=== PATIENT | female | born 1990 | race American Indian/Alaskan Native ===

== ENCOUNTER 2016-03-29 16:56 | Outpatient (CLI) | payer MEDICAID ==
[2016-03-29] MEDS ORDERED: LACTATED RINGERS 500 ML IV ONE (17:47)
[2016-03-29 18:27] LABS: Alanine Aminotransferase 23 units/L (7-56); Albumin 3.6 g/dL (3.9-5); Albumin/Globulin Ratio 0.9 %; Alkaline Phosphatase 183 units/L (35-129); Anion Gap 18 mmol/L; Bilirubin,Total 0.2 mg/dL (0.1-1.2); Blood Urea Nitrogen 8 mg/dL (7-17); Calcium 8.5 mg/dL (8.4-10.2); Carbon Dioxide 22 mmol/L (22-30); Glucose 75 mg/dL (65-100); Potassium 3.7 mmol/L (3.6-5.0); Sodium 135 mmol/L (137-145); Total Protein 7.5 g/dL (6.3-8.2)
[2016-03-29 18:28] LABS: Basophils % (Auto) 0.3 % (0.0-1.8); Eosinophils % (Auto) 0.7 % (0.0-4.3); Hematocrit 27.6 % (30.3-42.9); Hemoglobin 8.8 gm/dl (10.1-14.3); Mean Corpuscular HGB Conc 32 % (30-34); Mean Corpuscular Volume 72 fl (79-97); Platelet Count 201 K/mm3 (140-440); Red Blood Count 3.83 M/mm3 (3.65-5.03); Red Cell Distribution Width 16.9 % (13.2-15.2)
[2016-03-29 18:32] LABS: Mean Corpuscular Hemoglobin 23 pg (28-32)
[2016-03-29] MEDS ORDERED: INFUVITE 10 ML in D5LR 1,000 ML IV ONE ×2 (18:51→21:00)
--- NOTE | 2016-03-29 18:58 | History and Physical Report ---
History of Present Illness Date of examination: 03/29/16 Chief complaint: Anemia for possible blood transfusion History of present illness: 25-year-old at 36 weeks is referred from the clinic for above, she is a [facility] patient. Essential history this patient seen in clinic today complained of weakness and loss of energy. Hemoglobin in office record is 8 and she is referred here. Patient claims she was checked in the office and was ~ 2 cm. care otherwise unremarkable. Patient seen here in no acute distress. She is complaining of contractions, she has oral history of PPROM at 36 weeks. She is currently not on 17 HP Lab work shows hemoglobin hematocrit ~ 9/28 with MCV of 72, electrolytes significant for hyponatremia and elevated alkaline phosphatase Past History Past Medical History: asthma (?Currently on albuterol for occasional difficulty with SOB) Past Surgical History: no surgical history Social history: single, full code. denies: smoking, alcohol abuse, prescription drug abuse, IV drug use - Obstetrical History Expected Date of Delivery: 04/26/16 Actual Gestation: 36 Week(s) 0 Day(s) : 2 Para: 1 Hx # Term Pregnancies: 0 Number of Pregnancies: 1 Medications and Allergies Allergies Allergy/AdvReac Type Severity Reaction Status Date / Time Penicillins AdvReac Mild yeast Verified 01/03/16 00:05 infection Review of Systems Constitutional: weakness, malaise, lethargy, no fever, no chills, no sweats, no chronic headaches Cardiovascular: no chest pain, no orthopnea, no syncope, no lightheadedness, no shortness of breath, no dyspnea on exertion, no paroxysmal nocturnal dyspnea, no high blood pressure Respiratory: no cough with sputum, no shortness of breath, no dyspnea on exertion Gastrointestinal: no abdominal pain, no nausea, no vomiting Genitourinary: no vaginal bleeding, no leakage of fluid, no dysuria, no contractions - Vital Signs Vital signs: Vital Signs Pulse Pulse Ox 87 97 03/29/16 17:55 03/29/16 17:55 Temp Pulse Resp BP Pulse Ox 147 H 82 L 03/29/16 18:53 03/29/16 18:53 - Physical Exam Cardiovascular: Regular rate, Normal S1, Normal S2 Lungs: Positive: Clear to auscultation, Normal air movement Abdomen: Positive: normal appearance, soft. Negative: distention, tenderness, guarding, rigidity Uterus: Positive: enlarged. Negative: tender Extremities: Positive: normal Results Result Diagrams: 03/29/16 17:45 03/29/16 17:45 Abnormal lab results 03/29/16 03/29/16 Range/Units 17:45 17:45 Hgb 8.8 L (10.1-14.3) gm/dl Hct 27.6 L (30.3-42.9) % MCV 72 L (79-97) fl MCH 23 L (28-32) pg RDW 16.9 H (13.2-15.2) % [place] % (Auto) 8.2 H (0.0-7.3) % Lymph # 1.1 L (1.2-5.4) K/mm3 Seg Neutrophils % 74.6 H (40.0-70.0) % Sodium 135 L (137-145) mmol/L Creatinine 0.4 L (0.7-1.2) mg/dL Alkaline Phosphatase 183 H (35-129) units/L Albumin 3.6 L (3.9-5) g/dL All other labs normal. Assessment and Plan A: 25 y/o at 36 weeks -Cat 1 tracing -Ctx's appear resolved now P: -Do not feel patient needs PRBC at this time -Will start IV fluids bolus now -Continue Rx for Feso4 -Recommend f/u in clinic to consider 17 HP - Patient Problems (1) 36 weeks gestation of Current Visit: Yes Status: Acute (2) Anemia affecting in third trimester Current Visit: Yes Status: Acute (3) Hyponatremia Current Visit: Yes Status: Acute
[2016-03-29 19:12] LABS: Reticulocyte % 2.02 % (0.78-2.58)
== END 2016-03-30 00:30 | disposition home or self-care (01) ==
LOC: TRG 16:56 → LD 19:58 → TRG 03-30 00:30
PROVIDERS: ATTEND Obstetrics & Gynecology
DX: O77.9 Labor and delivery complicated by fetal stress, unspecified (principal); O47.03 False labor before 37 completed weeks of gestation, third trimester; Z3A.36 36 weeks gestation of pregnancy
CPT/HCPCS: 36415; 59025; 80053; 85025; 85045; 96360; 96361; J7121

== ENCOUNTER 2017-04-20 02:45 | Outpatient (CLI) | payer MEDICAID ==
[2017-04-20] MEDS ORDERED: LACTATED RINGERS 500 ML IV ONE (03:50)
== END 2017-04-20 04:00 | disposition home or self-care (01) ==
LOC: TRG 02:45
PROVIDERS: ATTEND Obstetrics & Gynecology
DX: O47.02 False labor before 37 completed weeks of gestation, second trimester (principal); Z3A.20 20 weeks gestation of pregnancy
CPT/HCPCS: 59025; J7120